=== PATIENT | male | born 1960 | race Caucasian/White ===

== ENCOUNTER 2021-10-13 13:30 | Inpatient (IN) | payer OTHER ==
[~2021-10-13] VITALS: Ht 172.7 cm; Wt 117.9 kg
--- NOTE | 2021-10-13 13:45 | NUR ---
Ricieved pt 66 yrs male came from [facility] pt covid postive by praelke c/o sob and palpation hr 170b/min DR. Hirsch at bed side EKG done dineses cp iv ns 1l infused and patent on rt ac
[2021-10-13] MEDS ORDERED: HYDR-501 PO (13:53)
[2021-10-13] MEDS ORDERED: DILTIAZEM HCL 60 MG TABLET PO ONE (14:00)
[2021-10-13] MEDS ORDERED: DILTIAZEM HCL IV 20 MG in IV DEXTROSE 5% 100 ML IV ONE (14:00)
--- NOTE | 2021-10-13 14:00 | NUR ---
edema in lower extramity
[2021-10-13] MEDS ORDERED: DILTIAZEM HCL 30 MG TABLET ONE (14:07)
[2021-10-13] MEDS ORDERED: IV NORMAL SALINE 500 ML BAG IV ONE ×3 (14:15→15:30)
[2021-10-13] MEDS ORDERED: DILTIAZEM HCL 25 MG IV IV ONE ×2 (14:15→15:30)
[2021-10-13 14:20] LABS: HEMATOCRIT 43.6 % (36.7-47.1); MEAN CORPUSCULAR HEMOGLOBIN 32.2 uug (23.8-33.4); MEAN CORPUSCULAR VOLUME 93.2 fL (73.0-96.2); PLATELET COUNT (AUTO) 307 K/uL (152-348)
[2021-10-13] MEDS ORDERED: DILTIAZEM HCL 25 MG IV ONE (14:23)
[2021-10-13 14:24] LABS: CREATININE 1.1 mg/dL (0.6-1.3); POTASSIUM 4.2 mmol/L (3.5-5.1)
[2021-10-13 14:29] LABS: BILIRUBIN,TOTAL 0.5 mg/dL (0.2-1.0); TOTAL PROTEIN, SERUM 7.3 g/dL (6.4-8.2)
--- NOTE | 2021-10-13 14:30 | NUR ---
pt unsable hr A.flLutter uncontrole RESPONDED TO CRADIZEM 20MG IVP HR 114 b/min
[2021-10-13 14:37] LABS: THYROID STIMULATING HORMONE 1.687 mIU/mL (0.358-3.740)
--- NOTE | 2021-10-13 15:00 | NUR ---
pt condition unsable closly moniter HR A.FLUTTER HOB ELEVATED ALL time
--- NOTE | 2021-10-13 15:30 | NUR ---
HR 160B/MIN 2ND dose of cardizem 20mg ivp given and ns 1l infused and patent contenue and closly obseve pt [id number] pt responded to tx converted to sr 88-90b/min
[2021-10-13] MEDS ORDERED: DILTIAZEM HCL 50 MG IV ONE (15:37)
[2021-10-13] MEDS ORDERED: LORAZEPAM 2 MG/1 ML VIAL IV ONE (16:00)
--- NOTE | 2021-10-13 16:00 | NUR ---
Back to a.fluter HR 128B/MIN ATIVAN 1MG IVP GIVEN
[2021-10-13] MEDS ORDERED: LORAZEPAM 2 MG/1 ML VIAL ONE (16:02)
[2021-10-13] MEDS ORDERED: MORPHINE SULFATE 2 MG/1 ML DISP.SYRIN IV PRN (16:30)
[2021-10-13] MEDS ORDERED: IV NS 1000 ML 1,000 ML IV PRN (16:30)
[2021-10-13] MEDS ORDERED: ONDANSETRON 4 MG/2 ML VIAL IV PRN (16:30)
--- NOTE | 2021-10-13 17:00 | NUR ---
DR DE LEON .PIEDAD HERE see and examine pt awre about pt condition HR 145b/min and bp 87/52mmhg pt on CHF order given AND CArry out
[2021-10-13] MEDS: PANTOPRAZOLE SODIUM 40 MG VIAL IV SCH (17:19)
[2021-10-13] MEDS: hydrOXYzine HCL 25 MG TABLET PO SCH (17:19)
[2021-10-13] MEDS: ASPIRIN 81 MG TAB.CHEW PO SCH (17:19)
[2021-10-13] MEDS ORDERED: PANTOPRAZOLE SODIUM 40 MG VIAL ONE (17:25)
[2021-10-13] MEDS ORDERED: hydrOXYzine HCL 25 MG TABLET ONE (17:25)
[2021-10-13] MEDS ORDERED: ASPIRIN 81 MG TAB.CHEW ONE (17:25)
[2021-10-13] MEDS ORDERED: AMIODARONE HCL IV 150 MG in IV DEXTROSE 5% 100 ML IV ONE (17:30)
[2021-10-13] MEDS ORDERED: FUROSEMIDE 20 MG/2 ML VIAL IVP ONE (17:45)
[2021-10-13] MEDS ORDERED: RIVAROXABAN 10 MG TABLET PO SCH (18:00)
--- NOTE | 2021-10-13 18:00 | NUR ---
started cardron drip 150mg bouls give over 10min and fallow with cardron drip at 1mg/hr infused and patent
[2021-10-13] MEDS ORDERED: RIVAROXABAN 10 MG TABLET ONE (18:21)
[2021-10-13] MEDS: AMIODARONE HCL IV 450 MG in IV DEXTROSE 5% 250 ML IV PRN (18:31)
[2021-10-13] MEDS ORDERED: FUROSEMIDE 20 MG/2 ML VIAL ONE (18:43)
--- NOTE | 2021-10-13 19:12 | NUR ---
PT RESTLESS UNCOOPRATVE and uncomfortable with sob tray got out of bed and walking around refused care
--- NOTE | 2021-10-13 19:25 | NUR ---
HAND OFF TO YANA. Felix RN pt GOTING OUT OF [facility]
--- NOTE | 2021-10-13 19:57 | NUR ---
from 1920 to 1949 in pts room explaining to him why he must keep heart monitor on and not remove iv from his arm. pt is restless wants to go home. Dr. De Leon was at bedside and further explained to him his medical condition and that he is admitted to the hospital. Pt assisted to ambualte in the room. pt current rhythm varies from sr to aflutter with a rate of 160. pt is on amiodarone infusion at 1mg/min until 0030. pt denies pain, states he has some short of breath. pt is on 5 liters nc. pt provided with call light and offered tv for viewing he declined. pt states he will be cooperative and comply and call when he needs something.
--- NOTE | 2021-10-13 21:00 | NUR ---
Call to Dr Rios order given for Seroquel 25 mg po x1 now. pt was complaining of feeling anxious.
[2021-10-13 21:09] LABS: *BILIRUBIN,URIN NEGATIVE (NEGATIVE); *BLOOD, URINE NEGATIVE (NEGATIVE); *CLARITY,URINE CLEAR (CLEAR); *COLOR,URINE YELLOW (YELLOW); *KETONES,URINE TRACE (NEGATIVE); *UROBILINOGEN,URINE 0.2 E.U./dl (NORMAL); LEUKOCYTE ESTERASE ,URINE NEGATIVE (NEGATIVE); NITRITE, URINE NEGATIVE (NEGATIVE); PH,URINE 5.5 (5.0-8.0); UGLUCOSE NEGATIVE (NEGATIVE)
[2021-10-13 21:14] LABS: BACTERIA,URINE NONE SEEN /HPF (NONE SEEN); RBC,URINE NONE SEEN /HPF (0-3); SQUAMOUS EPITHELIAL CELL,UR NONE SEEN /HPF (NONE SEEN); WBC,URINE 0-3 /HPF (0-3)
--- NOTE | 2021-10-13 21:29 | NUR ---
pt is calm resting in bed. pt declined seroquel that was obtained from Dr. Rios. pt currently with a rhythm of 78 and sinus.
[2021-10-13] MEDS ORDERED: QUETIAPINE FUMARATE 25 MG TABLET PO ONE (21:30)
--- NOTE | 2021-10-13 23:18 | NUR ---
pt denies pain, sr 87 on the monitor.
[2021-10-14] MEDS: AMIODARONE HCL IV 450 MG in IV DEXTROSE 5% 250 ML IV PRN (00:45)
--- NOTE | 2021-10-14 00:48 | NUR ---
Amiodarone infusion changed to 0.5mg/min as ordered. pt resting opens eyes to verbal response. no c/o pain or sob.
[2021-10-14] MEDS: ACETAMINOPHEN 325 MG TABLET PO PRN ×2 (02:15→08:14)
[2021-10-14] MEDS ORDERED: ACETAMINOPHEN 325 MG TABLET ONE ×2 (02:21→07:53)
--- NOTE | 2021-10-14 05:00 | NUR ---
With security and permission from pt. pt's rolling bag was searched. lap top computer various chargers, clothes were noted.
--- NOTE | 2021-10-14 05:06 | NUR ---
pt wakens to verbal denies pain or sob, heart rate ranges from 60 to 94.
--- NOTE | 2021-10-14 06:31 | NUR ---
report given to Keyona RN on third floor pt to go to room 304
--- NOTE | 2021-10-14 06:42 | NUR ---
spoke with Keyona RN on third floor, she informs me that Dr. Rios says patient should be placed in in Covid isolation and patient will now be placed in room 322. pending transfer, Keyona will call back.
[2021-10-14] MEDS ORDERED: IV NORMAL SALINE 500 ML IV ONE (07:00)
--- NOTE | 2021-10-14 07:34 | NUR ---
PT IS RESTING IN BED COMFORTABLY. NO S/S OF ACUTE DISTRESS AT THIS TIME. CONTINUE TO MONITOR THE PT.
[2021-10-14] MEDS ORDERED: hydrOXYzine HCL 25 MG TABLET ONE (07:53)
[2021-10-14] MEDS ORDERED: ASPIRIN 81 MG TAB.CHEW ONE (07:53)
[2021-10-14] MEDS ORDERED: PANTOPRAZOLE SODIUM 40 MG VIAL ONE (07:54)
[2021-10-14] MEDS: PANTOPRAZOLE SODIUM 40 MG VIAL IV SCH (08:13)
[2021-10-14] MEDS: ASPIRIN 81 MG TAB.CHEW PO SCH (08:14)
[2021-10-14] MEDS: hydrOXYzine HCL 25 MG TABLET PO SCH (08:14)
--- NOTE | 2021-10-14 08:25 | NUR ---
PT IS IN ROOM EATING BREAKFAST. NO S/S OF ACUTE DISTRESS AT THIS TIME. DR MELISSA EVALUATED THE PT.
[2021-10-14] MEDS ORDERED: RIVA10TA PO (08:51)
[2021-10-14] MEDS ORDERED: ATOR40TA PO (08:51)
[2021-10-14] MEDS ORDERED: ASPI81TA31 PO (08:51)
[2021-10-14] MEDS ORDERED: AMIO200T5 PO (08:51)
[2021-10-14] MEDS ORDERED: UBIQ100C2 PO (08:51)
--- NOTE | 2021-10-14 09:22 | NUR ---
PT WAS D/C'd FROM [facility] ER BY DR KEKE MELISSA. D/C INSTRUCTIONS GIVEN TO THE PT BY DR. KEKE MELISSA. PT LEFT HOSPITAL BY [facility]. NO S/S OF DISTRESS AT THE TIME OF DISCHARGE. GAIT IS STABLE. NO SOB. PT DENIES PAIN. NO NAUSEA / VOMITING. NO DIZZINESS.
[2021-10-14 09:48] VITALS: BP 126/76
== END 2021-10-14 09:20 | disposition home or self-care (01) | DRG 201 ==
LOC: ER 13:34 → TRANSITION 15:23
PROVIDERS: ADMIT Nurse Practitioner Acute Care; ATTEND Nurse Practitioner Acute Care
DX: I48.92 Unspecified atrial flutter (principal); I50.33 Acute on chronic diastolic (congestive) heart failure; E66.2 Morbid (severe) obesity with alveolar hypoventilation; Z59.01 Sheltered homelessness; F32.A Depression, unspecified; F41.9 Anxiety disorder, unspecified; Z86.16 Personal history of COVID-19; Z88.0 Allergy status to penicillin; Z20.822 Contact with and (suspected) exposure to COVID-19
CPT/HCPCS: 36415; 70030-TC; 71045; 83735; 84443; 85025; 85610; 93005; 93307; 93880; A4663; C9113; G0378; J0282; J1940; J2060; J3490; J7030; J7040; J7060